=== PATIENT | male | born 2000 | race Caucasian/White ===

== ENCOUNTER 2021-01-05 13:36 | Inpatient (IN) ==
[2021-01-05] MEDS ORDERED: *HR* LORazepam 2 MG/ML VIAL IM ONE (16:18)
[2021-01-05] MEDS ORDERED: Acetaminophen 325 MG TABLET PO PRN (19:17)
[2021-01-05] MEDS: traZODone 50 MG TABLET PO PRN (22:49)
[2021-01-06] MEDS: hydrOXYzine pamoate 25 MG CAPSULE PO PRN ×3 (05:01→17:14)
[2021-01-06] MEDS ORDERED: haloperidoL 5 MG TABLET PO PRN (08:08)
[2021-01-06] MEDS ORDERED: *HR* LORazepam 1 MG TABLET PO PRN (08:08)
[2021-01-06] MEDS ORDERED: *HR* LORazepam 2 MG/ML VIAL IM PRN (08:08)
[2021-01-06] MEDS ORDERED: Haloperidol Lactate 5 MG/ML VIAL IM PRN (08:08)
[2021-01-06] MEDS ORDERED: MOM Conc 10 ML UD.LIQ PO PRN (08:08)
[2021-01-06] MEDS ORDERED: Mag Hydrox/Al Hydrox/Simeth 30 ML UDC PO PRN (08:08)
[2021-01-06] MEDS: BuPROPion XL (24 HR) 150 MG TABLET PO SCH (10:42)
[2021-01-06] MEDS: traZODone 50 MG TABLET PO PRN (20:41)
[2021-01-07] MEDS: BuPROPion XL (24 HR) 150 MG TABLET PO SCH (08:27)
[2021-01-07 08:45] VITALS: BP 151/105; PULSE 101; TEMP 97.6; O2SAT 100
[2021-01-07] MEDS: hydrOXYzine pamoate 25 MG CAPSULE PO PRN ×2 (10:11→14:47)
== END 2021-01-07 16:45 | disposition home or self-care (01) | DRG 751 ==
LOC: EMEROOARM 13:36 → 1ANU 18:40
PROVIDERS: ADMIT Psychiatry & Neurology Psychiatry; ATTEND Psychiatry & Neurology Psychiatry